=== PATIENT | female | born 1960 | race Caucasian/White ===

== ENCOUNTER 2024-04-15 11:42 | Emergency (ER) | payer BC ==
[2024-04-15] MEDS: Sodium Chloride 0.9% 1,000 ML IV SCH (11:55)
[2024-04-15] MEDS ORDERED: Sodium Chloride 0.9% 10 ML Syringe FLUSH PRN (11:57)
[2024-04-15] MEDS: Diltiazem 50 MG/10 ML SDV IVPUSH ONE (12:05)
[2024-04-15 12:09] LABS: BASOPHILS PERCENT AUTO 0.2 % (0.2-1.2); HEMATOCRIT 44.5 % (33.0-47.0); HEMOGLOBIN 15.7 g/dL (12.0-16.0); IMMATURE GRAN ABSOLUTE AUTO 0.01 x10^3/uL (0.00-0.07); LYMPHOCYTES ABSOLUTE AUTO 1.2 x10^3/uL (1.0-4.8); LYMPHOCYTES PERCENT AUTO 21.9 % (25.0-50.0); MEAN CORPUSCULAR HEMOGLOBIN 29.4 pg (26.0-32.0); MEAN CORPUSCULAR HGB CONC 35.3 g/dL (32.0-36.0); MEAN CORPUSCULAR VOLUME 83.3 fL (78.0-93.0); MONOCYTES ABSOLUTE AUTO 0.8 x10^3/uL (0.0-0.8); NEUTROPHILS ABSOLUTE AUTO 3.6 x10^3/uL (1.8-7.7); NEUTROPHILS PERCENT AUTO 63.7 % (50.0-80.0); PLATELET COUNT,PLT 222 x10^3/uL (130-400); RED BLOOD CELL COUNT 5.34 x10^6/uL (4.00-5.50); WHITE BLOOD CELL COUNT,WBC 5.6 x10^3/uL (4.0-10.0)
[2024-04-15 12:27] LABS: PROTHROMBIN TIME 10.5 SEC (9.6-12.0); PTT,PARTIAL THROMBOPLSTIN TIME 25.4 SEC (23.5-33.2)
[2024-04-15 12:32] LABS: LACTIC ACID 2.6 mmol/L (0.4-2.0)
[2024-04-15 12:38] LABS: A/G RATIO 1.21; BILIRUBIN TOTAL 0.5 mg/dL (0.2-1.0); C-REACTIVE PROTEIN 2.52 mg/dL (<=0.50); CALCIUM 9.8 mg/dL (8.5-10.1); CREATININE 1.1 mg/dL (0.55-1.02); EST CRCL DRUG DOSING (CG) 55.87 mL/min; MAGNESIUM 1.8 mg/dL (1.8-2.4); POTASSIUM,K 3.9 mmol/L (3.5-5.1); PROTEIN TOTAL,TP 7.3 g/dL (6.4-8.2); TSH ULTRASENSITIVE 1.609 uIU/mL (0.358-3.74)
[2024-04-15 12:39] LABS: ANION GAP 17.9 mmol/L (5-15)
[2024-04-15] MEDS: Metoprolol Tartrate 5 MG/5 ML SDV IVPUSH ONE (12:56)
[2024-04-15] MEDS: Acetaminophen 500 MG Tab PO ONE (12:56)
[2024-04-15 12:57] VITALS: PULSE 95
[2024-04-15] MEDS: Lactated Ringers 1,000 ML IV ONE (13:06)
[2024-04-15 15:42] VITALS: BP 131/77
== END 2024-04-15 15:48 | disposition home or self-care (01) ==
LOC: VM.ED 11:42
DX: J10.1 Influenza due to other identified influenza virus with other respiratory manifestations (principal); I48.91 Unspecified atrial fibrillation; I10 Essential (primary) hypertension; E78.00 Pure hypercholesterolemia, unspecified; E11.9 Type 2 diabetes mellitus without complications; Z88.2 Allergy status to sulfonamides; Z79.82 Long term (current) use of aspirin; Z79.899 Other long term (current) drug therapy; Z79.4 Long term (current) use of insulin; Z79.84 Long term (current) use of oral hypoglycemic drugs
CPT/HCPCS: 36415; 71045; 80053; 83605; 83735; 84443; 84484; 85025; 85610; 85730; 86140; 87040; 87428-QW; 93005; 93010; 96361; 96374; 96375; 99284; 99285-25; A9270-GY; J3490; J7030; J7120